=== PATIENT | male | born 1980 | race Caucasian/White ===

== ENCOUNTER 2019-11-18 01:57 | Emergency (ER) | payer MEDICAID ==
[~2019-11-18] VITALS: Ht 185.4 cm; Wt 188.0 kg
[2019-11-18] MEDS ORDERED: normal saline 1000ML IV soln IVB ONE (02:25)
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
[2019-11-18 02:30] LABS: CLARITY,URINE CLOUDY (Clear); COLOR,URINE YELLOW (Yellow); GLUCOSE, URINE NEGATIVE (Neg); KETONES,URINE NEGATIVE (Neg); LEUKOCYTE ESTERASE ,URINE NEGATIVE (Neg); NITRITES, URINE NEGATIVE (Neg); OCCULT BLOOD,URINE MODERATE (Neg); PH,URINE 5.5 (4.8-8.0); PROTEIN,URINE >=300 mg/dl (Neg); UROBILINOGEN,URINE 0.2 E.U/dL (0.2-1.0)
[2019-11-18 02:31] LABS: UA COLLECTION TYPE FOLEY CATH
[2019-11-18 02:35] LABS: BACTERIA,URINE 1+ /HPF (Neg); RBC,URINE 0-2 /HPF (0-2); SQUAMOUS EPITHELIAL CELL,UR FEW /LPF (FEW); WBC,URINE 0-4 /HPF (0-4)
[2019-11-18 02:36] LABS: SPERM MANY /HPF (NEGATIVE)
[2019-11-18 02:43] LABS: URINE AMPHETAMINE SCREEN NEGATIVE (Neg); URINE BARBITUATE SCREEN NEGATIVE (Neg); URINE BENZODIAZEPINES SCREEN NEGATIVE (Neg); URINE CANNABINOID SCREEN NEGATIVE (Neg); URINE COCAINE SCREEN POSITIVE (Neg); URINE METHADONE SCREEN NEGATIVE (Neg); URINE OPIATE SCREEN NEGATIVE (Neg); URINE PHENCYCLIDINE SCREEN NEGATIVE (Neg)
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
--- NOTE | 2019-11-18 04:24 | NUR ---
Terrell rodriguez in ED - 11/18/19 at 0453 by DARION Recontacted Lisa who stated to expect extended ETA for patient transport orderly
--- NOTE | 2019-11-18 04:24 | NUR ---
Recontacted Lisa who stated to expect extended ETA for director of institutional giving
--- NOTE | 2019-11-18 04:29 | NUR ---
Note michael in EDM - 11/18/19 at 0454 by DARION Jason Carver at [facility]. Referral #[id number]. States pt. too large for tissue donation and can be released as appropriate.
--- NOTE | 2019-11-18 04:29 | NUR ---
Contacted Mehul at [facility]. Referral #[id number]. States pt. too large for tissue donation and can be released as appropriate.
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
--- NOTE | 2019-11-18 05:22 | NUR ---
Change Number Operator reps on scene
[2019-11-18 06:22] VITALS: BP 0/0
[2019-11-18] MEDS ORDERED: sod chloride 0.9% 10ml flush syringe IV ONE (08:00)
[2019-11-18] MEDS ORDERED: rocuronium 10mg/ml inj IV ONE (08:00)
[2019-11-18] MEDS ORDERED: etomidate 2mg/ml inj. ONE (08:00)
[2019-11-18] MEDS ORDERED: epiNEPHrine 0.1mg/ml 10ml syringe ONE (08:00)
[2019-11-18] MEDS ORDERED: sodium bicarbonate (8.4%) 1 mEq/ml syringe ONE (08:00)
== END 2019-11-18 06:27 | disposition expired ==
LOC: EDBD 01:58 → ER 01:58
DX: I46.9 Cardiac arrest, cause unspecified (principal); R41.82 Altered mental status, unspecified
CPT/HCPCS: 31500; 80305; 81001; 92950; 99285; J0171